=== PATIENT | male | born 1960 | race African-American/Black ===

== ENCOUNTER 2016-12-16 05:29 | Day surgery (SDC) | payer OTHER ==
[~2016-12-16] VITALS: Ht 175.3 cm; Wt 117.9 kg
--- NOTE | ~2016-12-16 | EKG ---
[address] [place] [address] ELECTROCARDIOGRAM REPORT Name: BEATRICE MERINO Room #: DEP [facility]..#: [id number] Admission: 12/16/16 Attend Phys: Talat Driscoll MD Discharge: 12/16/16 Date of : 62 Report #: [id number] THIS REPORT FOR: //name// [facility] Test Date: 2016-12-16 Test Time: 07:59:08 Pat Name: BEATRICE MERINO Department: Room: 150 2 Gender: M [employer]: Irene : 1960 Requested By: Talat Driscoll Order Number: [id number] MD: Nolan Thomas Measurements Intervals [place] Rate: 56 P: 3 WV: 149 QRS: -15 QRSD: 91 T: 0 QT: 427 QTc: 413 Interpretive Statements Sinus rhythm Borderline left axis deviation Poor R-wave progression Nonspecific T wave abnormalities Compared to ECG 04/18/2015 21:13:21 No significant change Electronically Signed On 12-17-2016 12:39:05 CDT by Nolan Thomas [email or web address] <ELECTRONICALLY SIGNED> By: Nolan Thomas MD 12/17/16 [id number] Nolan Thomas MD /RAFA
--- NOTE | ~2016-12-16 | O ---
[facility] [place] [address] OPERATIVE REPORT Name: BEATRICE MERINO Room #: DEP [facility].#: [id number] Admission: 12/16/16 Attend Phys: Talat Driscoll MD Discharge: 12/16/16 Date of : 62 Report #: [id number] THIS REPORT FOR: //name// CC: Talat Galaviz Aida DATE OF SERVICE: 12/16/2016 PREOPERATIVE DIAGNOSIS: Advanced colon cancer, status post chemotherapy, here for Port-A-Cath removal. POSTOPERATIVE DIAGNOSIS: Advanced colon cancer, status post chemotherapy, here for Port-A-Cath removal. PROCEDURES PERFORMED: Removal of Port-A-Cath. SURGEON: Talat Driscoll MD COMPLICATIONS: None. ESTIMATED BLOOD LOSS: 5 mL. PROCEDURE NOTE: With the patient under general anesthesia, the left chest was prepped and draped in sterile fashion. A 0.25% Marcaine was used to anesthetize the skin and also around the port. Incision was made at his old scar site. The junction of the catheter to the port was isolated. The catheter was identified and removed. All the catheter came out. This was identified by the numbering on the catheter. Pressure was held over the site where the catheter exited the vein tract. Hemostasis obtained. The port was then dissected free from the surrounding tissue using cautery. This was removed without difficulty. The subcutaneous tissue was reapproximated with 4-0 PDS. The capsule surrounding the port was completely removed. Skin was closed with 5-0 PDS. Steri-Strip, 4 x 4, OpSite used for dressing. The patient tolerated the procedure well and was taken to recovery room. By: [id number] Talat Driscoll MD /nt
[~2016-12-16 05:29] MED LIST: ACETAMINOPHEN-1 EAC1 PO; ATORVASTATIN CA40 MG PO; CELEXA 20 MG TA20 MG PO; CIALIS20 MG PO; COZAAR 50 MG TA50 M2 PO; DIOVAN320 MG PO; HYDROCODONE-AP1 EAC6 PO; IRON325 PO; KLOR-CON 10 ER10 MEQ PO; KLOR-CON 1010 MEQ PO; LASIX 40 MG TAB40 M2 PO; LEVEMIR SUBQ; LOSARTAN POTAS100 MG PO; MULTIVITAMINS1 EAC2 PO; NEURONTIN 300300 M1 PO; NORCO 5-325 TA1 EACH PO; NORVASC5 MG PO; NOVOLOG100 UNIT/1 SUBQ; ZINC50 M2 PO
[2016-12-16 09:28] VITALS: BP 129/81
[2016-12-16 10:55] VITALS: BP 129/81
== END 2016-12-16 11:20 | disposition home or self-care (01) ==
LOC: OR 05:29 → TBA 05:29 → OR 11:20
DX: Z45.2 Encounter for adjustment and management of vascular access device (principal); I10 Essential (primary) hypertension; E11.9 Type 2 diabetes mellitus without complications; E78.5 Hyperlipidemia, unspecified; Z79.4 Long term (current) use of insulin; Z85.46 Personal history of malignant neoplasm of prostate; Z86.2 Personal history of diseases of the blood and blood-forming organs and certain disorders involving the immune mechanism; Z85.038 Personal history of other malignant neoplasm of large intestine; Z98.890 Other specified postprocedural states; Z79.899 Other long term (current) drug therapy
CPT/HCPCS: 50010; 50101; 50386; 50403; 56525; 56526; 62110; 62900; 70005